=== PATIENT | male | born 1940 | race African-American/Black ===

== ENCOUNTER 2022-02-11 13:58 | Outpatient (CLI) | payer MEDICARE, SELFPAY ==
[2022-02-11 19:44] LABS: Basophils Percent Auto 0.8 % (0.2-1.2); Eosinophils Absolute Auto 0.4 K/mm3 (0-0.3); Eosinophils Percent Auto 7.1 % (0-4.4); Hematocrit 44.7 % (42.0-52.0); Hemoglobin 14.3 g/dL (14.0-18.0); Immature Granulocyte Absolute 0.02 K/mm3 (0.00-0.031); Immature Granulocyte Percent A 0.4 % (0-0.5); Lymphocytes Percent Auto 32.6 % (18.3-44.2); Mean Corpuscular Hemoglobin 27.3 pg (26-34); Mean Corpuscular Volume 85.3 fl (80-100); Mean Platelet Volume 9.9 fl (7.4-10.4); Monocytes Absolute Auto 0.6 K/mm3 (0.1-0.6); Monocytes Percent Auto 12.2 % (2.6-8.5); Neutrophils Absolute Auto 2.3 K/mm3 (1.3-6.7); Neutrophils Percent Auto 46.9 % (45.5-73.1); Platelet Count Result 212 k/mm3 (150-375); Red Blood Count 5.24 M/mm3 (4.6-6.20); Red Cell Distribution Width 12.9 % (11.5-14.5); White Blood Count 4.9 K/mm3 (4.5-10.0)
[2022-02-11 19:58] LABS: Creatinine Urine 241.8 mg/dL; Hemoglobin A1C 7.6 % (<5.7)
[2022-02-11 20:07] LABS: Alanine Aminotransferase 22 U/L (6-50); Albumin Level 4.7 g/dL (3.5-5.1); Alkaline Phosphatase 72 U/L (38-126); Anion Gap 13 mmol/L (8-16); Aspartate Amino Transferase 26 U/L (17-59); Bilirubin,Total 0.6 mg/dL (0.2-1.3); Blood Urea Nitrogen 23 mg/dL (9-20); Calcium 9.7 mg/dL (8.4-10.2); Carbon Dioxide 27 mmol/L (22-30); Chloride 101 mmol/L (98-107); Estimated Glomerular Filt Rate 51; Glucose 215 mg/dL (65-110); Potassium 3.4 mmol/L (3.4-5.0); Sodium 141 mmol/L (137-145)
[2022-02-11 20:35] LABS: Prostate Specific Antigen 7.9 ng/mL (< OR = 4.0)
[2022-02-11 20:53] LABS: MALB Creatinine Ratio 178.6 mg/g (0-30); Microalbumin Urine Random 431.9 mg/L (0-16.7)
== END 2022-02-11 13:59 | disposition home or self-care (01) ==
LOC: ANHGOSHLAB 14:01
PROVIDERS: PCP Family Medicine; Visit Provider Nurse Practitioner
DX: E11.9 Type 2 diabetes mellitus without complications (principal); I10 Essential (primary) hypertension; Z12.5 Encounter for screening for malignant neoplasm of prostate
CPT/HCPCS: 36415; 80053; 82043; 83036; 84153; 85025; G0103

== ENCOUNTER 2022-09-23 13:16 | Outpatient (CLI) | payer MEDICARE, SELFPAY ==
[2022-09-23 16:55] LABS: Alanine Aminotransferase 25 U/L (6-50); Albumin Level 4.5 g/dL (3.5-5.1); Alkaline Phosphatase 70 U/L (38-126); Anion Gap 5 mmol/L (8-16); Aspartate Amino Transferase 35 U/L (17-59); Bilirubin,Total 0.9 mg/dL (0.2-1.3); Blood Urea Nitrogen 21 mg/dL (9-20); Calcium 9.7 mg/dL (8.4-10.2); Carbon Dioxide 34 mmol/L (22-30); Chloride 98 mmol/L (98-107); Cholesterol 144 mg/dL (0-200); Estimated Glomerular Filt Rate 50; Glucose 129 mg/dL (65-110); HDL Direct 47 mg/dL; Potassium 3.4 mmol/L (3.4-5.0); Sodium 137 mmol/L (137-145); Triglycerides 114 mg/dL (<150)
[2022-09-23 16:59] LABS: Basophils Percent Auto 0.8 % (0.2-1.2); Eosinophils Absolute Auto 0.3 K/mm3 (0-0.3); Eosinophils Percent Auto 5.5 % (0-4.4); Hematocrit 46.2 % (42.0-52.0); Hemoglobin 14.8 g/dL (14.0-18.0); Immature Granulocyte Absolute 0.01 K/mm3 (0.00-0.031); Immature Granulocyte Percent A 0.2 % (0-0.5); Lymphocytes Absolute Auto 2.19 K/mm3 (0.9-3.2); Lymphocytes Percent Auto 45.9 % (18.3-44.2); Mean Corpuscular Hemoglobin 27.5 pg (26-34); Mean Corpuscular Volume 85.7 fl (80-100); Mean Platelet Volume 9.9 fl (7.4-10.4); Monocytes Absolute Auto 0.7 K/mm3 (0.1-0.6); Monocytes Percent Auto 14.7 % (2.6-8.5); Neutrophils Absolute Auto 1.6 K/mm3 (1.3-6.7); Neutrophils Percent Auto 32.9 % (45.5-73.1); Platelet Count Result 238 k/mm3 (150-375); Red Blood Count 5.39 M/mm3 (4.6-6.20); White Blood Count 4.8 K/mm3 (4.5-10.0)
[2022-09-23 17:08] LABS: LDL Cholesterol Direct 75 mg/dL
[2022-09-23 17:25] LABS: Prostate Specific Antigen 8.2 ng/mL (< OR = 4.0)
[2022-09-23 17:29] LABS: Vitamin D 25 Hydroxy 29.9 ng/mL
[2022-09-23 17:33] LABS: Hemoglobin A1C 6.3 % (<5.7)
[2022-09-23 18:25] LABS: Creatinine Urine 272.9 mg/dL
[2022-09-23 18:56] LABS: MALB Creatinine Ratio 72.4 mg/g (0-30); Microalbumin Urine Random 197.7 mg/L (0-16.7)
== END 2022-09-23 13:17 | disposition home or self-care (01) ==
LOC: ANHGOSHLAB 13:17
PROVIDERS: PCP Family Medicine; Visit Provider Family Medicine
DX: E11.9 Type 2 diabetes mellitus without complications (principal); E78.5 Hyperlipidemia, unspecified; N18.30 Chronic kidney disease, stage 3 unspecified; I12.9 Hypertensive chronic kidney disease with stage 1 through stage 4 chronic kidney disease, or unspecified chronic kidney disease; E55.9 Vitamin D deficiency, unspecified; E53.8 Deficiency of other specified B group vitamins; Z12.5 Encounter for screening for malignant neoplasm of prostate
CPT/HCPCS: 36415; 80053; 80061; 82043; 82306; 82607; 83036; 84153; 84443; 85025; G0103

== ENCOUNTER 2023-03-24 13:41 | Outpatient (CLI) | payer MEDICARE, SELFPAY ==
[2023-03-24 19:46] LABS: Alanine Aminotransferase 20 U/L (6-50); Albumin Level 4.6 g/dL (3.5-5.1); Alkaline Phosphatase 73 U/L (38-126); Anion Gap 10 mmol/L (8-16); Aspartate Amino Transferase 36 U/L (17-59); Bilirubin,Total 0.8 mg/dL (0.2-1.3); Blood Urea Nitrogen 21 mg/dL (9-20); Calcium 10.4 mg/dL (8.4-10.2); Carbon Dioxide 30 mmol/L (22-30); Chloride 100 mmol/L (98-107); Estimated Glomerular Filt Rate 44; Glucose 129 mg/dL (65-110); Potassium 3.5 mmol/L (3.4-5.0); Sodium 140 mmol/L (137-145)
[2023-03-24 19:54] LABS: Vitamin D 25 Hydroxy 48.6 ng/mL
[2023-03-24 20:11] LABS: Prostate Specific Antigen 9.5 ng/mL (< OR = 4.0)
[2023-03-24 20:24] LABS: Hemoglobin A1C 6.6 % (<5.7)
== END 2023-03-24 13:42 | disposition home or self-care (01) ==
LOC: ANHGOSHLAB 13:42
PROVIDERS: PCP Family Medicine; Visit Provider Family Medicine
DX: Z12.5 Encounter for screening for malignant neoplasm of prostate (principal); R97.20 Elevated prostate specific antigen [PSA]; E11.9 Type 2 diabetes mellitus without complications; I10 Essential (primary) hypertension; E55.9 Vitamin D deficiency, unspecified
CPT/HCPCS: 36415; 80053; 82306; 83036; 84153; G0103

== ENCOUNTER 2023-11-10 13:34 | Outpatient (CLI) | payer MEDICARE, SELFPAY ==
[2023-11-10 18:45] LABS: Hematocrit 49.4 % (42.0-52.0); Hemoglobin 15.9 g/dL (14.0-18.0); Mean Corpuscular HGB Conc 32.2 g/dl (32-36); Mean Platelet Volume 10.1 fl (7.4-10.4); Platelet Count Result 248 k/mm3 (150-375); Red Blood Count 5.68 M/mm3 (4.6-6.20); Red Cell Distribution Width 12.8 % (11.5-14.5); White Blood Count 5.7 K/mm3 (4.5-10.0)
[2023-11-10 18:49] LABS: Alanine Aminotransferase 22 U/L (6-50); Albumin Level 5.1 g/dL (3.5-5.1); Alkaline Phosphatase 76 U/L (38-126); Anion Gap 15 mmol/L (4-12); Aspartate Amino Transferase 32 U/L (17-59); Blood Urea Nitrogen 22 mg/dL (9-20); Calcium 10.1 mg/dL (8.4-10.2); Carbon Dioxide 30 mmol/L (22-30); Chloride 95 mmol/L (98-107); Cholesterol 158 mg/dL (0-200); Estimated Glomerular Filt Rate 44; Glucose 134 mg/dL (65-110); HDL Direct 53 mg/dL; Potassium 3.2 mmol/L (3.4-5.0); Sodium 140 mmol/L (137-145); Triglycerides 143 mg/dL (<150)
[2023-11-10 19:01] LABS: LDL Cholesterol Direct 67 mg/dL
[2023-11-10 19:16] LABS: Prostate Specific Antigen 12.7 ng/mL (< OR = 4.0)
[2023-11-10 19:27] LABS: Hemoglobin A1C 6.6 % (<5.7)
[2023-11-10 19:34] LABS: Vitamin D 25 Hydroxy 64.7 ng/mL
[2023-11-10 20:26] LABS: Creatinine Urine 364.2 mg/dL; Microalbumin Urine Random 560.8 mg/L (0-16.7)
== END 2023-11-10 13:35 | disposition home or self-care (01) ==
LOC: ANHGOSHLAB 13:36
PROVIDERS: PCP Family Medicine; Visit Provider Nurse Practitioner
DX: Z00.00 Encounter for general adult medical examination without abnormal findings (principal); R97.20 Elevated prostate specific antigen [PSA]; E55.9 Vitamin D deficiency, unspecified; E11.9 Type 2 diabetes mellitus without complications
CPT/HCPCS: 36415; 80053; 80061; 82043; 82306; 83036; 84153; 84443; 85027

== ENCOUNTER 2024-03-29 13:28 | Outpatient (CLI) | payer MEDICARE, SELFPAY ==
[2024-03-29 20:44] LABS: Alanine Aminotransferase 19 U/L (6-50); Albumin Level 4.7 g/dL (3.5-5.1); Alkaline Phosphatase 72 U/L (38-126); Anion Gap 6 mmol/L (4-12); Aspartate Amino Transferase 42 U/L (17-59); Bilirubin,Total 0.9 mg/dL (0.2-1.3); Blood Urea Nitrogen 22 mg/dL (9-20); Calcium 10.3 mg/dL (8.4-10.2); Carbon Dioxide 31 mmol/L (22-30); Chloride 101 mmol/L (98-107); Estimated Glomerular Filt Rate 41; Glucose 128 mg/dL (65-110); Potassium 3.6 mmol/L (3.4-5.0); Sodium 138 mmol/L (137-145)
[2024-03-29 20:52] LABS: Hemoglobin A1C 6.4 % (<5.7)
[2024-03-30 09:04] LABS: Prostate Specific Antigen 13.3 ng/mL (< OR = 4.0)
== END 2024-03-29 13:29 | disposition home or self-care (01) ==
LOC: ANHGOSHLAB 13:28
PROVIDERS: PCP Family Medicine; Visit Provider Family Medicine
DX: R97.20 Elevated prostate specific antigen [PSA] (principal); I10 Essential (primary) hypertension; E11.9 Type 2 diabetes mellitus without complications; Z12.5 Encounter for screening for malignant neoplasm of prostate
CPT/HCPCS: 36415; 80053; 83036; 84153; G0103

== ENCOUNTER 2025-01-02 10:00 | Outpatient (CLI) | payer MEDICARE, SELFPAY ==
[2025-01-02 13:05] LABS: Alanine Aminotransferase 19 U/L (6-50); Albumin Level 4.6 g/dL (3.5-5.1); Alkaline Phosphatase 75 U/L (38-126); Anion Gap 10 mmol/L (4-12); Aspartate Amino Transferase 49 U/L (17-59); Bilirubin,Total 0.6 mg/dL (0.2-1.3); Blood Urea Nitrogen 18 mg/dL (9-20); Calcium 9.7 mg/dL (8.4-10.2); Carbon Dioxide 30 mmol/L (22-30); Chloride 99 mmol/L (98-107); Cholesterol 146 mg/dL (0-200); Estimated Glomerular Filt Rate 41; Glucose 125 mg/dL (65-110); HDL Direct 47 mg/dL; Potassium 3.2 mmol/L (3.4-5.0); Sodium 139 mmol/L (137-145); Total Protein 8.0 g/dL (6.3-8.2); Triglycerides 86 mg/dL (<150)
[2025-01-02 13:46] LABS: Hematocrit 42.9 % (42.0-52.0); Hemoglobin 13.4 g/dL (14.0-18.0); Immature Granulocyte Percent A 0.3 % (0-0.5); Lymphocytes Absolute Auto 2.62 K/mm3 (0.9-3.2); Mean Corpuscular HGB Conc 31.2 g/dl (32-36); Mean Corpuscular Hemoglobin 26.9 pg (26-34); Mean Corpuscular Volume 86.0 fl (80-100); Nucleated Red Blood Cells Absolute Auto 0.000 K/mm3 (0.0-0.012); Nucleated Red Blood Cells Perc 0.0 % (0.0-0.2); Platelet Count Result 269 k/mm3 (150-375); Red Blood Count 4.99 M/mm3 (4.6-6.20); White Blood Count 6.5 K/mm3 (4.5-10.0)
[2025-01-02 13:50] LABS: Hemoglobin A1C 6.6 % (<5.7); Thyroid Stimulating Hormone Reflex 2.680 uIU/mL (0.465-4.68)
[2025-01-02 13:59] LABS: Vitamin B12 239.0 pg/mL (239-931)
[2025-01-03 07:09] LABS: PSA, Free 1.20 ng/mL
== END 2025-01-02 10:01 | disposition home or self-care (01) ==
LOC: ANHGOSHLAB 10:00
PROVIDERS: PCP Family Medicine; Visit Provider Family Medicine
DX: I10 Essential (primary) hypertension (principal); Z00.00 Encounter for general adult medical examination without abnormal findings; E11.9 Type 2 diabetes mellitus without complications; E78.5 Hyperlipidemia, unspecified; E55.9 Vitamin D deficiency, unspecified; E53.8 Deficiency of other specified B group vitamins; R97.20 Elevated prostate specific antigen [PSA]; Z12.5 Encounter for screening for malignant neoplasm of prostate
CPT/HCPCS: 36415; 80053; 80061; 82306; 82607; 83036; 84153; 84154; 84443; 85025

== ENCOUNTER 2025-01-03 11:30 | Outpatient (NON) | payer MEDICARE, SELFPAY ==
[2025-01-03 19:28] LABS: MALB Creatinine Ratio 359.1 mg/g (0-30)
== END 2025-01-03 11:31 | disposition home or self-care (01) ==
PROVIDERS: PCP Family Medicine; Visit Provider Family Medicine
DX: E78.5 Hyperlipidemia, unspecified (principal); E11.9 Type 2 diabetes mellitus without complications; I10 Essential (primary) hypertension
CPT/HCPCS: 82043

== ENCOUNTER 2025-02-10 14:42 | Outpatient (CLI) | payer MEDICARE, SELFPAY ==
[2025-02-10 18:17] LABS: Iron 62 ug/dL (49-181)
[2025-02-10 18:18] LABS: Anion Gap 7 mmol/L (4-12); Blood Urea Nitrogen 19 mg/dL (9-20); Calcium 10.1 mg/dL (8.4-10.2); Carbon Dioxide 30 mmol/L (22-30); Chloride 99 mmol/L (98-107); Estimated Glomerular Filt Rate 35; Glucose 104 mg/dL (65-110); Potassium 3.9 mmol/L (3.4-5.0); Sodium 136 mmol/L (137-145)
[2025-02-10 18:26] LABS: Percent Iron Saturation 14 % (20-50)
[2025-02-10 18:58] LABS: Ferritin 8.62 ng/mL (11.1-264)
== END 2025-02-10 14:43 | disposition home or self-care (01) ==
LOC: ANHGOSHLAB 14:43
PROVIDERS: PCP Family Medicine; Visit Provider Family Medicine
DX: E87.6 Hypokalemia (principal); D64.9 Anemia, unspecified
CPT/HCPCS: 36415; 80048; 82728; 83540; 83550

== ENCOUNTER 2025-04-10 16:14 | Emergency (ER) | payer MEDICARE, SELFPAY ==
[2025-04-10 16:25] VITALS: BP 173/70; PULSE 71; RESP 16; TEMP 36.1; O2SAT 100
--- NOTE | 2025-04-10 17:08 | ED.MALEGU ---
HPI - Male Genitourinary General Chief complaint: Urogenital-Male Stated complaint: Trouble Urinating Time Seen by Provider: 04/10/25 16:35 Source: patient Mode of arrival: ambulatory Limitations: no limitations History of Present Illness HPI Narrative: Julio is an 85-year-old male patient presenting to the clinic today with complaints of difficulty urinating since Thursday. He reports he is able to start a stream but then his flow decreases and he has been dribbling and then he feels as though he needs to go more. History of BPH in the past. Denies any visible blood in his urine. Denies any fevers, chills, body aches, back pain, or abdominal pain. Related Data Home Medications ?Medication ?Instructions ?Recorded ?Confirmed ?Last Taken ?Type amlodipine 10 mg tablet 10 mg PO DAILY 10/18/24 04/10/25 Unknown History simvastatin 20 mg tablet 20 mg PO QHS 10/18/24 04/10/25 Unknown History Allergies Allergy/AdvReac Type Severity Reaction Status Date / Time No Known Allergies Allergy Verified 04/10/25 16:27 Review of Systems Review of Systems: Pertinent positives per HPI. Patient denies any fever, chills, rash, headache, visual changes, dizziness, cough, runny nose, sore throat, shortness of breath, chest pain, palpitations, nausea, vomiting, diarrhea, constipation, abdominal pain PMFSH Past Medical History Medical History Hypokalemia Type 2 diabetes mellitus without complications Vitamin D deficiency Elevated PSA CKD (chronic kidney disease) stage 3, GFR 30-59 ml/min Dyslipidemia (high LDL; low HDL) Essential (primary) hypertension Surgical History Surgical History History of removal of cyst sebaceous cyst 2016 Social History Social History Smoking status: Former smoker Second hand tobacco smoke exposure: No Smoking end date: 04/13/94 Alcohol intake: never Substance use: never Substance use type: does not use Lack of Transportation: No Lack of Food: Never True Current Housing: I Have Housing Concerned About Future Housing: No Difficulty Paying Gas/Electric Bills: No Difficulty Paying for Meds: No Currently Unemployed: No Education: Decline to Answer Difficulty w/ Childcare or Family Care: No Living arrangements: with family Additional living arrangements comments: partner-Jennie Occupation/Education: retired Gender identity (if verbalized by the patient): Male Agree to blood products: Yes Comments At the time of my signature, I reviewed and agree with the nursing past medical, surgical, social, and family history. There is no relevant family history pertinent to the patient complaint. Exam Narrative: General: Well-developed, well nourished, in no apparent distress. Head: Normocephalic, atraumatic. Cardio: Regular rate and rhythm, s1 and s2 normal, no murmur appreciated. Resp: Clear to auscultation bilaterally, no rhonchi, rales, wheezing or rubs. Abdomen: Soft, pliable, bowel sounds present in all quadrants, non-tender to palpation, no organomegly, no CVAT tenderness. Course Course Level of Care: Express Care Visit Vital Signs Vital signs: Vital Signs Temperature 36.1 C L 04/10/25 16:25 Pulse Rate 71 04/10/25 16:25 Respiratory Rate 16 04/10/25 16:25 Blood Pressure 173/70 H 04/10/25 16:25 Pulse Oximetry 100 04/10/25 16:25 Oxygen Delivery Room Air 04/10/25 16:25 Temperature 36.1 C L 04/10/25 16:25 Pulse Rate 71 04/10/25 16:25 Respiratory Rate 16 04/10/25 16:25 Blood Pressure 173/70 H 04/10/25 16:25 Pulse Oximetry 100 04/10/25 16:25 Oxygen Delivery Room Air 04/10/25 16:25 Transfer Transfered to: [facility] Transportation: Other (POV) Transfer rationale: Difficulty urinating, hematuria, protein urea, rule out obstruction/mass Accepting physician: Dr. Guerrier Transfer comments: POV MDM MDM Narrative Medical decision making narrative: At the time of visit patient is resting comfortably on the exam table. Patient appears to be nontoxic. Complaints of difficulty urinating since Thursday. He reports he is able to start a stream but then his flow decreases and he has been dribbling and then he feels as though he needs to go more. History of BPH in the past. Denies any visible blood in his urine. Denies any fevers, chills, body aches, back pain, or abdominal pain. On exam patient has soft, pliable, nondistended abdomen, bowel sounds present all 4 quadrants, no suprapubic tenderness, no CVAT tenderness, no organomegaly. Urinalysis dip ordered Labs: Urinalysis positive for 3+ blood, 3+ protein, and trace of leukocytes. Plan: Patient is having difficulty with urination, hematuria, and protein urea. Recommend transfer to the ER for further evaluation to rule out obstruction/mass. Patient agrees to transfer and would like to go to [facility]. Discussed patient's case with Dr. Guerrier at [facility] and he accepts patient for transfer. Differential Diagnosis Differential Diagnosis: Differential diagnostic considerations for male genitourinary issues include urinary tract infection, priapism, epididymitis, prostatitis, acute retention of urine, inguinal hernia, STI exposure, testicular torsion, Jaleel?s gangrene. Discharge Plan Discharge Clinical Impression: Difficulty in urination Hematuria Qualifiers: Hematuria type: unspecified type Qualified Code(s): R31.9 - Hematuria, unspecified Proteinuria Qualifiers: Proteinuria type: unspecified Qualified Code(s): R80.9 - Proteinuria, unspecified Patient Disposition: Acute Care Hospital Condition: Stable Patient Language: [place] Prescriptions: No Action cholecalciferol (vitamin D3) 50 mcg (2,000 unit) tablet 50 mcg PO DAILY Qty: 90 2RF amlodipine 10 mg tablet 10 mg PO DAILY simvastatin 20 mg tablet 20 mg PO QHS potassium chloride [K-Tab] 20 mEq tablet extended release 20 meq PO DAILY Qty: 90 1RF metformin 500 mg tablet 500 mg PO BID Qty: 180 1RF losartan-hydrochlorothiazide 100-25 mg tablet 1 tablet PO DAILY Qty: 90 1RF metoprolol tartrate 100 mg tablet 100 mg PO BID Qty: 180 1RF ferrous sulfate 325 mg (65 mg iron) tablet,delayed release (DR/EC) 325 mg PO DAILY Qty: 90 2RF Follow-up/Referrals: Augustin Barrera MD [Primary Care Provider, Family Practice] Time of Disposition: 17:00 Quality NIHSS Nursing Documentation ED NIHSS nursing documentation: reviewed/agree
[2025-04-10 18:48] LABS: EDUAAPPEAR Clear; EDUABILI Negative (Negative); EDUABLOOD 3+ (Negative); EDUACOLOR1 Dark; EDUAGLUCOSE Negative (Negative); EDUAKETONE Negative (Negative); EDUALEUKO Trace (Negative); EDUANITRATE Negative (Negative); EDUAPH 6.5; EDUAPROTEIN 3+ (Negative); EDUASPGRAVITY 1.015; EDUAUROBILI 0.2
== END 2025-04-10 16:55 | disposition short-term general hospital (02) ==
PROVIDERS: Emergency Provider Nurse Practitioner Family; PCP Family Medicine
DX: R39.198 Other difficulties with micturition (principal); R31.9 Hematuria, unspecified; R80.9 Proteinuria, unspecified; E87.6 Hypokalemia; E11.9 Type 2 diabetes mellitus without complications; E55.9 Vitamin D deficiency, unspecified; R97.20 Elevated prostate specific antigen [PSA]; I12.9 Hypertensive chronic kidney disease with stage 1 through stage 4 chronic kidney disease, or unspecified chronic kidney disease; N18.30 Chronic kidney disease, stage 3 unspecified; E78.5 Hyperlipidemia, unspecified
CPT/HCPCS: 81003; 99212; G0463

== ENCOUNTER 2025-04-10 17:20 | Emergency (ER) | payer MEDICARE, SELFPAY ==
[2025-04-10 17:37] VITALS: BP 182/68; PULSE 70; RESP 18; TEMP 36.1; O2SAT 100
[2025-04-10 18:25] LABS: Non Pathogenic Casts 0-2
[2025-04-10 18:31] LABS: Add Urine Microscopic? YES; Appearance Urine Cloudy (Clear); Glucose Urine UA Negative (Negative); Leukocyte Esterase Ur 1+ LEU/UL (Negative); Nitrate Urine Negative (Negative); Specific Grav Ur 1.010 (1.001-1.035)
--- NOTE | 2025-04-10 20:53 | ED.MALEGU ---
HPI - Male Genitourinary General Chief complaint: Urogenital-Male Stated complaint: urinary retention, blood in urine Time Seen by Provider: 04/10/25 20:24 Source: patient Mode of arrival: ambulatory Limitations: no limitations History of Present Illness HPI Narrative: This is a 85 year old male that presents to the ER for dysuria. Ongoing over the last 3 days. Reports some hematuria. Denies fever, abdominal pain, flank pain, vomiting. Related Data Home Medications ?Medication ?Instructions ?Recorded ?Confirmed ?Last Taken ?Type amlodipine 10 mg tablet 10 mg PO DAILY 10/18/24 04/10/25 Unknown History simvastatin 20 mg tablet 20 mg PO QHS 10/18/24 04/10/25 Unknown History Allergies Allergy/AdvReac Type Severity Reaction Status Date / Time No Known Allergies Allergy Verified 04/10/25 17:21 Review of Systems Review of Systems: All systems reviewed & are unremarkable except as noted in HPI and below PMFSH Past Medical History Medical History Hypokalemia Type 2 diabetes mellitus without complications Vitamin D deficiency Elevated PSA CKD (chronic kidney disease) stage 3, GFR 30-59 ml/min Dyslipidemia (high LDL; low HDL) Essential (primary) hypertension Surgical History Surgical History History of removal of cyst sebaceous cyst 2017 Social History Social History Smoking status: Former smoker Second hand tobacco smoke exposure: No Smoking end date: 04/13/94 Alcohol intake: never Substance use: never Substance use type: does not use Lack of Transportation: No Lack of Food: Never True Current Housing: I Have Housing Concerned About Future Housing: No Difficulty Paying Gas/Electric Bills: No Difficulty Paying for Meds: No Currently Unemployed: No Education: Decline to Answer Difficulty w/ Childcare or Family Care: No Living arrangements: with family Additional living arrangements comments: partner-Jennie Occupation/Education: retired Gender identity (if verbalized by the patient): Male Agree to blood products: Yes Exam Narrative: GENERAL: Well-appearing, well-nourished, and in no acute distress. HEAD: Normocephalic, atraumatic. EYES: EOMI. CHEST: Clear to auscultation. No respiratory distress. No wheezes rales or rhonchi HEART: Regular rate and rhythm. No murmur heard. Normal peripheral pulses. ABDOMEN: Soft, nontender, nondistended, normal active bowel sounds. No CVA tenderness EXTREMITIES: Normal range of motion. No edema. SKIN: Warm, dry, no rash. NEURO: No focal deficits. Alert and oriented x3. PSYCH: Normal mood and affect Course Vital Signs Vital signs: Vital Signs Temperature 97.0 F L 04/10/25 17:37 Pulse Rate 70 04/10/25 17:37 Respiratory Rate 18 04/10/25 17:37 Blood Pressure 182/68 H 04/10/25 17:37 Pulse Oximetry 100 04/10/25 17:37 Oxygen Delivery Room Air 04/10/25 17:37 Temperature 98 F 04/10/25 21:50 Pulse Rate 88 04/10/25 21:50 Respiratory Rate 18 04/10/25 21:50 Blood Pressure 150/87 H 04/10/25 21:50 Pulse Oximetry 100 04/10/25 21:50 Oxygen Delivery Room Air 04/10/25 21:50 [facility] Narrative Medical decision making narrative: Patient presents the emergency department for dysuria, hematuria. Patient is afebrile and nontoxic appearing. He denies any abdominal pain, flank pain, vomiting. Abdominal exam is benign. UA is consistent with infection. This was sent for culture. Given dose of antibiotic in the ER. Will be continued on oral antibiotics. Patient was noted to be retaining urine, Graham catheter placed. Will be given follow-up with urology. Given warnings to return to the ER Differential Diagnosis Differential Diagnosis: UTI, kidney stone, urinary retention Lab Data [facility] Lab Attestation statement: I personally reviewed the patient's lab results. Labs: Lab Results 04/10/25 Range/Units 18:08 Urine Color [place] H (Yellow) Urine Appearance Cloudy H (Clear) Urine pH 7.0 (5.0-9.0) Ur Specific [place] 1.010 (1.001-1.035) Urine Protein 2+ H (Negative) mg/dL Urine Glucose (UA) Negative (Negative) mg/dL Urine Ketones Negative (Negative) mg/dL Ur Blood (Man) 3+ H (Negative) Urine Nitrate Negative (Negative) Urine Bilirubin Negative (Negative) Urine Urobilinogen 0.2 (<2.0) mg/dL Leukocyte Esterase Rfl 1+ H (Negative) ANÍBAL/UL Urine RBC >100 H (0-2) /hpf Urine WBC 11-20 H (0-3) /hpf Ur Squamous Epith Cells Occasional (Few) /hpf Urine Bacteria None seen /hpf Urine Casts 0-2 Critical Care Time Critical Care Time Critical Care Time: No Discharge Plan Discharge Clinical Impression: Acute UTI, Acute urinary retention Patient Disposition: Home Condition: Stable Instructions: Antibiotic Form, Urinary Retention in Men (ED), Urinary Tract Infection in Men (ED), Graham Catheter Placement and Care (ED) Additional Instructions: Return to the ER if you experience fever, abdominal pain with nausea and vomiting, you are unable to keep down liquids or solids, or any other symptoms that are concerning to you Remain well hydrated. Take oral antibiotic as prescribed. Graham catheter care as directed Follow up with Urology Patient Language: Kinyarwanda Prescriptions: New cefdinir 300 mg capsule 300 mg PO Q12H 7 Days Qty: 14 0RF No Action cholecalciferol (vitamin D3) 50 mcg (2,000 unit) tablet 50 mcg PO DAILY Qty: 90 2RF amlodipine 10 mg tablet 10 mg PO DAILY simvastatin 20 mg tablet 20 mg PO QHS potassium chloride [K-Tab] 20 mEq tablet extended release 20 meq PO DAILY Qty: 90 1RF metformin 500 mg tablet 500 mg PO BID Qty: 180 1RF losartan-hydrochlorothiazide 100-25 mg tablet 1 tablet PO DAILY Qty: 90 1RF metoprolol tartrate 100 mg tablet 100 mg PO BID Qty: 180 1RF ferrous sulfate 325 mg (65 mg iron) tablet,delayed release (DR/EC) 325 mg PO DAILY Qty: 90 2RF Follow-up/Referrals: Augustin Barrera MD [Primary Care Provider, Family Practice] Mario Faulkner MD [Physician, Urology]
[2025-04-10 21:50] VITALS: BP 150/87; PULSE 88; RESP 18; TEMP 36.6; O2SAT 100
[2025-04-10] MEDS: CEFDINIR 300 MG CAPSULE PO (21:55)
--- NOTE | 2025-04-10 23:15 | PC.NURSE ---
gottlieb catheter placed, tolerated well. Pt educated on gottlieb care, verbalized understanding and demonstrated proper technique.
[2025-04-10 23:48] VITALS: BP 167/65; PULSE 74; RESP 18; O2SAT 100
== END 2025-04-10 23:50 | disposition home or self-care (01) ==
PROVIDERS: Emergency Medicine; Emergency Provider Physician Assistant; PCP Family Medicine
DX: N39.0 Urinary tract infection, site not specified (principal); R33.9 Retention of urine, unspecified; E11.22 Type 2 diabetes mellitus with diabetic chronic kidney disease; I12.9 Hypertensive chronic kidney disease with stage 1 through stage 4 chronic kidney disease, or unspecified chronic kidney disease; N18.30 Chronic kidney disease, stage 3 unspecified; E55.9 Vitamin D deficiency, unspecified; Z87.891 Personal history of nicotine dependence; Z79.899 Other long term (current) drug therapy; Z79.84 Long term (current) use of oral hypoglycemic drugs
CPT/HCPCS: 51702; 81001; 87086; 87147; 87186; 99283; A9270